=== PATIENT | male | born 1980 | race African-American/Black ===

== ENCOUNTER 2017-08-10 18:37 | Emergency (ER) | payer BC ==
[~2017-08-10] VITALS: Ht 185.4 cm; Wt 94.1 kg
[~2017-08-10 18:37] MED LIST: FLOMAX 0.40.4 MG/CAP PO; NORCO 325 MG-51 TAB PO; PERCOCET 325 MG1 TA2 PO; PHENERGAN 25 TA25 MG PO
[2017-08-10 18:51] VITALS: TEMP 98.1
[2017-08-10 18:58] VITALS: BP 124/88
[2017-08-10] MEDS ORDERED: NORCO 325 MG-51 TAB PO (19:07)
[2017-08-10] MEDS ORDERED: AMOXICILLIN 50500 MG PO (19:07)
[2017-08-10 19:18] VITALS: PULSE 85
== END 2017-08-10 19:29 | disposition home or self-care (01) ==
LOC: COL.ER 18:37
DX: K08.89 Other specified disorders of teeth and supporting structures (principal); F17.210 Nicotine dependence, cigarettes, uncomplicated; F12.90 Cannabis use, unspecified, uncomplicated

== ENCOUNTER 2019-11-05 00:32 | Emergency (ER) | payer SELFPAY ==
[~2019-11-05] VITALS: Ht 185.4 cm; Wt 95.0 kg
[~2019-11-05 00:32] MED LIST changes: +AMOXICILLIN 50500 MG PO
[2019-11-05 01:19] LABS: BASO % 0.6 % (0.0-2.0); EOS # 0.1 (0.0-0.7); GRAN # 3.1 (1.4-6.5); GRAN % 59.7 % (42.2-75.2); HEMATOCRIT 41.6 % (42.0-52.0); HEMOGLOBIN 14.2 g/dl (13.5-18.0); LYMPH # 1.5 (1.2-3.4); LYMPH % 28.2 % (20.0-51.0); MEAN CELL VOLUME 99 fl (80.0-100.0); MEAN CORPUSCULAR HEMOGLOBIN 34 pg (27.0-31.0); MEAN CORPUSCULAR HGB CONC 34 g/dl (33.0-37.0); MEAN PLATELET VOLUME 10.7 fl (7.4-10.4); MONO # 0.5 (0.1-0.6); MONO % 10.3 % (1.7-9.3); PLATELET COUNT 225 K/mm3 (130-400); RED BLOOD COUNT 4.19 M/mm3 (4.20-5.60); REDCELL DISTRIBUTION WIDTH-CV 11.9 % (11.5-14.5)
[2019-11-05 01:28] LABS: CREATININE, serum 1.03 (0.66-1.25); POTASSIUM 3.9 mmol/L (3.4-5.0)
[2019-11-05] MEDS ORDERED: AMOXICILLIN 8751 TAB PO (03:09)
[2019-11-05 05:22] VITALS: BP 128/87; PULSE 74; TEMP 97.6
== END 2019-11-05 05:36 | disposition home or self-care (01) ==
LOC: COL.ER 00:32
PROVIDERS: Emergency Medicine
DX: S02.32XA Fracture of orbital floor, left side, initial encounter for closed fracture (principal); S02.832A Fracture of medial orbital wall, left side, initial encounter for closed fracture; S05.32XA Ocular laceration without prolapse or loss of intraocular tissue, left eye, initial encounter; R04.0 Epistaxis; F17.210 Nicotine dependence, cigarettes, uncomplicated; Y04.0XXA Assault by unarmed brawl or fight, initial encounter; Y92.410 Unspecified street and highway as the place of occurrence of the external cause